=== PATIENT | female | born 1970 | race Caucasian/White ===

== ENCOUNTER → 2017-04-08 | Day surgery (SDC) | payer OTHER ==
[~2017-04-08] VITALS: Ht 177.8 cm; Wt 126.7 kg
[~2017-04-08] MED LIST: *RESP: ALBUTEROL 2.5 MG/3 ML NEB (PRN) PERIprocedural Use ONLY NEB ONE; ACETAMINOPHEN 1000 MG/100 ML 100 ML IV SCH; ATOR40TA16 PO; BUPIVACAINE/EPINEPHRINE 0.25% 50 ML VIAL ONE; BUPR150T3; CHLORHEXIDINE GLUCONATE 2 % 1 PACK (2 CLOTHS) TOPICAL PRN; DEXAMETHASONE SOD PHOS 4 MG/ML VIAL IV ONE; DO NOT ADM ANY ANTICOAGULANT DRUGS PRN; EMPA1TAB PO; FURO20TA PO; GLIM4TAB PO; GLYCOPYRROLATE 1 MG/5 ML SYRINGE IV PUSH ONE; IBUP200T47 PO; INSU1INJ14 SQ; KETOROLAC TROMETHAMINE 30 MG/ML (IVP) VIAL IV PUSH ONE; KETOROLAC TROMETHAMINE 30 MG/ML (IVP) VIAL ONE; LACTATED RINGER'S 1000 ML INJ 1,000 ML IV ONE; LACTATED RINGER'S 1000 ML IV PRN; LAMO150T PO; LEVEMIR SQ; LEVO100T60 PO; LEVO100T63 PO; LIDOCAINE HCL 1% PF 5 ML SYRINGE OTHER ONE; LISI40TA PO; LORT5TAB PO; LOVA10TA; MAPA500C PO; METF1000 PO; METO50TA PO; METOPROLOL TARTRATE 25 MG TAB PO PRN; MIDAZOLAM HCL 2 MG/2 ML VIAL ONE; MODA200T12 PO; MORPHINE SULFATE 4 MG/ML INJ IV PUSH PRN; MULTTAB67 PO; NEOSTIGMINE 5 MG/5 ML SYRINGE IV PUSH ONE; ONDANSETRON HCL 4 MG/2 ML VIAL IV ONE; ONDANSETRON HCL 4 MG/2 ML VIAL IV PUSH PRN; PHENYLEPH/NS 1000 MCG/10 ML SYR IV ONE; POTA8CAP PO; POVIDONE IODINE 5% (ANTISEPSIS KIT) 4 APPLICATIONS EACH NARE PRN; PRIN20TA2 PO; PROPOFOL 200 MG/20 ML AMP IV ONE; RISP.25 IM; RISP50P IM; ROCURONIUM INJ 50 MG/5 ML SYRINGE IV PUSH ONE; SACC1CAP3 PO; SODIUM CHLORID 0.9% 500 ML IV PRN; VITA2000 PO; ceFAZolin 2 GM PREMIX 50 ML IV SCH; ePHEDrine/NS 25 MG/5 ML SYRINGE IV ONE
[2017-04-08 10:58] VITALS: BP 124/73; PULSE 76; RESP 18; TEMP 97.6; O2SAT 96
--- NOTE | 2017-04-08 12:04 | PD.OP ---
cc: Glenn Cerda MD Operative Report Date of Surgery: Apr 08, 2017 Preoperative Diagnosis: Chronic cholecystitis and cholelithiasis Postoperative Diagnosis: Chronic cholecystitis and cholelithiasis Procedure: Laparoscopic cholecystectomy Anesthesia: General endotracheal Surgeon: Glenn Cerda Document Photographer(s): Claritza Norwood, MS 3 Operation and Findings: Operative findings: The patient was found to have a grossly elongated, thick walled gallbladder which was completely encapsulated by omentum, but with relatively filmy adhesions. There was a relatively large stone in the neck of the gallbladder with the cystic duct and common bile duct were both seen to be of normal caliber. Operative procedure: The patient was brought to the operating room and after satisfactory general endotracheal anesthesia was obtained, the abdomen was prepped and draped in usual sterile fashion. 0.25% Marcaine with epinephrine was used to infiltrate the skin for local anesthesia. Small incision was made above the umbilicus and a 5 mm trochars inserted into the peritoneal cavity under direct visualization. The abdomen was then distended to 15 mmHg using carbon dioxide after which the camera was reinserted and visceral injury inspected for, with none being identified. Under direct visualization a 12 port and a 5 port were placed in the upper abdomen. The gallbladder was identified as it was covered with omentum. The part of the fundus could be grasped which was accomplished with and the omentum then dissected free using the harmonic scalpel as well as by blunt dissection. Once Ac's pouch of been freed, it was grasped and retracted inferiorly and laterally, placing tension on the hepatoduodenal ligament. The cystic duct and cystic artery were both dissected free with moderate difficulty due to the amount scar tissue in the area. Once the critical view been obtained, the cystic artery was dissected free completely and divided near central the gallbladder using Harmonic scalpel. The cystic duct had slight increased thickness and it was controlled 2 hemoclips and then divided with a Harmonic scalpel near the junction with the gallbladder. The gallbladder was then dissected free from the liver bed using the harmonic scalpel. It was placed within an Endo Catch bag and brought through the upper midline incision where his entity of its bile and withdrawn without problem. The specimen was sent for permanent pathology. The trocar was reinserted and the liver bed inspected and found to be hemostatic. The cystic duct cystic artery stumps were both seen to be intact with no leakage of bile or blood. The carbon dioxide was then vented as completely as possible the atmosphere after which the ports were removed and the skin closed with interrupted 4-0 Monocryl subcuticular stitches. Steri- Strips were applied and the patient then awakened and taken from the operating room, in satisfactory condition, having tolerated the procedure without problem. Estimated blood loss was less than 10 mL's. The instrument, sponge, and needle counts were reported as being correct 2 at the end procedure. Glenn Cerda MD Apr 08, 2017 12:03
== END | disposition home or self-care (01) ==
LOC: HSDC 05:44
PROVIDERS: ATTEND Surgery
DX: K80.10 Calculus of gallbladder with chronic cholecystitis without obstruction (principal); K76.0 Fatty (change of) liver, not elsewhere classified; E11.8 Type 2 diabetes mellitus with unspecified complications; E55.9 Vitamin D deficiency, unspecified; G47.33 Obstructive sleep apnea (adult) (pediatric); E04.2 Nontoxic multinodular goiter; G47.62 Sleep related leg cramps; E03.9 Hypothyroidism, unspecified; E78.5 Hyperlipidemia, unspecified; J44.9 Chronic obstructive pulmonary disease, unspecified; I10 Essential (primary) hypertension; G89.29 Other chronic pain; Z87.891 Personal history of nicotine dependence
CPT/HCPCS: 00790; 47562; 88304; 94664; J0131; J0690; J1100; J1885; J2250; J2370; J2405; J2710; J3010; J7120; J7613